=== PATIENT | male | born 1945 | race Caucasian/White ===

== ENCOUNTER 2016-09-23 23:28 | Emergency (ER) | payer OTHER, MEDICARE ==
[~2016-09-23] VITALS: Ht 170.2 cm; Wt 93.9 kg
[2016-09-23 23:45] VITALS: BP 158/87
--- NOTE | 2016-09-24 00:17 | ED NOSE COMPLAINT ---
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 PT'S SON STATES THAT PT HAS EXPERIENCED THIS ONCE BEFORE A FEW YEARS AGO. UPON ARRIVAL, NOSE BLEED APPEARS CONTROLLED. PT TAKES ASPIRIN DAILY. BP 158/87, O2 SAT 95% ON ROOM AIR. Triage Nurses Notes Reviewed? yes HPI: 69 YO MALE WITH CO NOSE BLEED THAT STARTED 45MIN ROLLER HAND. L NARES, MILD TO MODEATE BLEEDING, BLOOD IN THE BACK OF THE THROAT. TAKES ASA 81MG DAILY, HX OF NOSE BLEED SEVERAL YEARS AGO THAT NEEDED PACKING. NO PAIN, NO TRAUMA. BLEEDING STOPPED ON ARRIVAL. NO WEAKNESS, NO FATIGUE. (BLOSSOM AMATO) Past History Travel History Traveled to [place] past 21 day No Medical History Any Pertinent Medical History? see below for history Cardiovascular: hypertension Endocrine: diabetes Surgical History Surgical History: non-contributory Psychosocial History What is your primary language Guinean Tobacco Use: Current Daily Use Daily Tobacco Use Amount/Type: => 5 Cigarettes daily ETOH Use: occasional use Illicit Drug Use: denies illicit drug use Family History Hx Contributory? No (BLOSSOM AMATO) Review of Systems Review of Systems Constitutional: Reports: see HPI. EENTM: Reports: see HPI. Respiratory: Reports: no symptoms. Cardiovascular: Reports: no symptoms. GI: Reports: no symptoms. Genitourinary: Reports: no symptoms. Musculoskeletal: Reports: no symptoms. Skin: Reports: no symptoms. Neurological/Psychological: Reports: no symptoms. Hematologic/Endocrine: Reports: no symptoms. Immunologic/Allergic: Reports: no symptoms. All Other Systems: Reviewed and Negative (BLOSSOM AMATO) Physical Exam Physical Exam General Appearance: well developed/nourished Head: atraumatic, normal appearance Eyes: Bilateral: normal appearance, PERRL, EOMI. Ears: Bilateral: canal normal. Nose: dried blood Mouth/Throat: normal mouth inspection, pharynx normal, SMALL AMOUNT OF BLOOD IN THE POSTERIOR PHARYNX, NO ACTIVE BLEEDING. Neck: normal inspection, supple, full range of motion Cardiovascular/Respiratory: normal breath sounds, regular rate/rhythm Neurologic/Psych: no motor/sensory deficits, awake, alert, oriented x 3, normal gait Skin: intact, normal color, warm/dry Comments: R NARES CLEAR. L NARES WITH SMALL AMOUNT OF DRY BLOOD AND ENGORGED, NOT BLEEDING , BLOOD VESSEL AT THE ANTERIOR PLEXSUS L SIDE. (BLOSSOM AMATO) Progress Differential Diagnoses I considered the following diagnoses in my evaluation of the patient: POSTERIOR BLEED, HTN, THROMBOCYTOPENIA, DIGITAL TRAUMA Plan of Care: BLEEDIND STOPPED AFTER APPLICATION OF AFRIN, DIRECT PRESSURE AND SILVER NITRATE CAUTERY. MONITERED FOR 20+ MIN AND NO SIGNS OF BLEEDIN ON RE EVAL. TO RETURN WITH ANY CONCERNS OF BLEEDINGMORE [id number] IN AFTER DIRECT PRESSURE. Initial ED EKG: none (BLOSSOM AMATO) Departure Departure Disposition: HOME OR SELF CARE Condition: Stable Clinical Impression Primary Impression: Anterior epistaxis Referrals: PHAN LEONARDO,ESTRELLA MARTINEZ (PCP/Family) Additional Instructions: RETURN IF THERE IS BLEEDING FROM THE NOSE THAT HAS NOT STOPPED AFTER 20MIN OF DIRECT PRESSURE. FOLLOW UP WITH ENT IF NOSE BLEEDS CONTINUE. MAKE SURE TO TAKE YOUR BLOOD PRESSURE MEDICATION. Departure Forms: Customer Survey General Discharge Information (BLOSSOM AMATO) PA/STRATEGIC ACCOUNTS MANAGER Co-Sign Statement Statement: ED Attending supervision documentation- [] I saw and evaluated the patient. I have also reviewed all the pertinent lab results and diagnostic results. I agree with the findings and the plan of care as documented in the PA's/STRATEGIC ACCOUNTS MANAGER's documentation. [x] I have reviewed the ED Record and agree with the PA's/STRATEGIC ACCOUNTS MANAGER's documentation. [] Additions or exceptions (if any) to the PAs/STRATEGIC ACCOUNTS MANAGER's note and plan are summarized below: [] (YAKOV LEONARDO,MANDI Gallagher)
[2016-09-24] MEDS ORDERED: RANITIDINE HCL150 MG PO (10:39)
[2016-09-24] MEDS ORDERED: FENOFIBRATE145 M1 PO (10:39)
[2016-09-24] MEDS ORDERED: VERAPAMIL ER240 MG PO (10:39)
[2016-09-24] MEDS ORDERED: BENAZEPRIL HCL40 MG PO (10:40)
[2016-09-24] MEDS ORDERED: HYDRALAZINE HCL50 M1 PO (10:40)
[2016-09-24] MEDS ORDERED: SPIRONOLACTONE50 M1 PO (10:40)
[2016-09-24] MEDS ORDERED: ATORVASTATIN CA10 M1 PO (10:41)
[2016-09-24] MEDS ORDERED: GUAIFENESIN-COD10 ML PO (11:24)
[2016-09-25] MEDS ORDERED: BACTRIM DS TAB1 EACH PO (10:26)
[2016-09-25] MEDS ORDERED: ASPIRIN EC81 M1 PO (20:00)
[2016-09-25] MEDS ORDERED: CITALOPRAM HBR20 MG PO (20:01)
[2016-09-25] MEDS ORDERED: TRADJENTA5 M1 PO (20:01)
[2016-09-25] MEDS ORDERED: VERAPAMIL ER180 MG PO (20:02)
== END 2016-09-24 00:24 ==
LOC: ERH 23:28
DX: R04.0 Epistaxis (principal)
CPT/HCPCS: 99282

== ENCOUNTER 2016-09-24 10:03 | Emergency (ER) | payer OTHER, MEDICARE ==
[~2016-09-24] VITALS: Ht 170.2 cm; Wt 93.4 kg
[2016-09-24 10:07] VITALS: BP 146/82
[2016-09-24] MEDS ORDERED: VERAPAMIL ER240 MG PO (10:39)
[2016-09-24] MEDS ORDERED: RANITIDINE HCL150 MG PO (10:39)
[2016-09-24] MEDS ORDERED: FENOFIBRATE145 M1 PO (10:39)
--- NOTE | 2016-09-24 10:39 | ED NOSE COMPLAINT ---
History of Present Illness General Chief Complaint: Epistaxis/Nasal Foreign Body Stated Complaint: NOSE BLEED Source: patient, family, old records Exam Limitations: no limitations Vital Signs & Intake/Output Vital Signs & Intake/Output Vital Signs Date Time Temp Pulse Resp B/P Pulse O2 O2 Flow FiO2 Ox Delivery Rate 09/24 1007 97.9 96 20 146/82 96 Room Air Allergies Coded Allergies: losartan (Mild, GI DISTRESS 09/24/16) Triage Note: PT TO ED C/O NOSE BLEED SINCE 0500 AND 0800 THIS AM. PT WAS IN ED AROUND MIDNIGHT FOR SAME. SENT HOME. PT STATES IT STARTED BLEEDING AGAIN AT 0500, STOPPED FOR A WHILE AND THEN STARTED AGAIN AT 0800. PT HAS GAUZE IN NOSE, NO BLEEDING NOTED AROUND GAUZE. PT TAKES ASA DAILY. Triage Nurses Notes Reviewed? yes Onset: Abrupt Duration: day(s): (2), intermittent, waxing and waning Timing: recent history Injury Environment: home Severity: mild Severity Numbers: 4 No Modifying Factors: none Associated Symptoms: DENIES HPI: 71-year-old male presents to emergency room with his family after he had 2 episodes of left-sided epistaxis last night after being seen here for the same yesterday requiring cautery. The patient is on a baby aspirin no other blood thinner use. There is been no bleeding since he arrived here in the ER. He denies any trauma injury dizziness lightheadedness fever or chills. The patient states that he used Afrin nasal spray with resolution of the 2 episodes which lasted for the flea only a few minutes. He is otherwise without any other complaints or the patient is also stating that he is at a now productive cough for the past few weeks for which she has not sought care. He denies shortness of breath hemoptysis sputum production fever chills chest pain abdominal pain nausea vomiting or diarrhea. (INGE WOLFE,VINI) Reconcile Medications Atorvastatin Calcium 10 MG TABLET 1 TAB PO DAILY CHOLESTEROL (Reported) Benazepril HCl 40 MG TABLET 1 TAB PO DAILY HEART (Reported) Fenofibrate Nanocrystallized (Fenofibrate) 145 MG TABLET 1 TAB PO DAILY CHOLESTEROL (Reported) Hydralazine HCl 50 MG TABLET 1 TAB PO BID HEART (Reported) Ranitidine (Ranitidine HCl) 150 MG TABLET 1 TAB PO DAILY GI (Reported) Robitussin AC (Guaifenesin-Codeine Syrup) 200 MG-20 MG/10 ML LIQUID 10 ML PO Q6HR PRN COUGH Spironolactone 50 MG TABLET 1 TAB PO DAILY HEART (Reported) Verapamil HCl (Verapamil ER) 240 MG CAP24H.PEL 1 CAP PO DAILY HEART (Reported ) (PRIYA LEONARDO,GENE Polk) Past History Travel History Traveled to [place] past 21 day No Medical History Any Pertinent Medical History? see below for history Cardiovascular: hypertension Endocrine: diabetes Surgical History Surgical History: non-contributory Psychosocial History What is your primary language Frisian Tobacco Use: Current Daily Use Daily Tobacco Use Amount/Type: => 5 Cigarettes daily ETOH Use: denies use Illicit Drug Use: denies illicit drug use Family History Hx Contributory? No (VINI AVENDAÑO) Review of Systems Review of Systems Constitutional: Reports: see HPI. All Other Systems: Reviewed and Negative Comments Review of systems: See HPI, All other systems negative. Constitutional, no chills no fever, no malaise HEENT: No visual changes no sore throat no congestion, Cardiovascular: No chest pain , no palpitation , Skin, no jaundice no rashes, no change in skin Respiratory: No dyspnea no cough no sputum GI: No nausea no vomiting, no diarrhea, : No dysuria Muscle skeletal: No joint pain, no back pain, no neck pain, Neurologic: No numbness no headache Psych: No stress Heme/endocrine: No bruising no polyuria no polydipsia Immunology: No lymphadenopathy (VINI AVENDAÑO) Physical Exam Physical Exam General Appearance: well developed/nourished, alert, awake Nose: normal inspection, no dry blood, no septal hematoma Comments: Well-developed well-nourished patient in no apparent distress. Head/Face: Atraumatic, no maxillary/frontal sinus tenderness, no facial swelling Eyes: PERRL, EOMI, no conjunctival injection. No nystagmus Ear:External auditory canals clear, no erythema Nose: atraumatic.Normal inspection: No bleeding, no septal hematoma no dry blood no active bleeding Throat: Moist mucous membranes.Pharynx normal. No pharyngeal erythema/exudate seen. No stridor/drooling or assymetry. No swelling or edema. No blood to the posterior pharynx Neck: Supple, no lymphadenopathy, FROM Back: FROM, Nontender Cardiovascular: Regular rate and rhythms no murmurs rubs or gallops, Respiratory: Chest nontender.There were no bony deformities, no asymmetry. No respiratory distress. Patient speaking in full complete sentences. Breath sounds clear to auscultation bilaterally: NO W/R/R Extremities: full range of motion Neuro: Alert and oriented x3 Skin: Warm & dry;No appreciable rash on exposed skin Psych: Mood affect normal, normal memory normal judgment. (VINI AVENDAÑO) Progress Differential Diagnoses I considered the following diagnoses in my evaluation of the patient: Epistaxis, pneumonia bronchitis malignancy Plan of Care: Patient was observed in the ER here there is no active bleeding. Patient is requesting to go home he feels stable information was provided for ENT follow-up , prescription for Robitussin with codeine was provided for cough, advised to use caution as this may make you drowsy, Both the family the patient feel comfortable with this plan. I discussed the medications that they will receive with the patient. I gave them signs and symptoms that could indicate an adverse reaction. I have advised them to limit their activities until they can see how they respond to the medication. Initial ED EKG: none (VINI AVENDAÑO) Departure Departure Time of Disposition: 1121 Disposition: HOME OR SELF CARE Condition: Stable Clinical Impression Primary Impression: Epistaxis Referrals: PHAN LEONARDO,ESTRELLA MARTINEZ (PCP/Family) Additional Instructions: FOLLOW UP WITH EAR NOSE AND THROAT DR PHILIP THIS WEEK. DISCUSSED if he starts bleeding apply Afrin to her nose, and hold pressure for 10 minutes if bleeding persists return to the emergency room. Robitussin with codeine for cough use caution as this will make you drowsy this prescription was sent to your [facility] Departure Forms: Customer Survey General Discharge Information Prescriptions: Current Visit Scripts Robitussin AC (Guaifenesin-Codeine Syrup) 10 ML PO Q6HR PRN COUGH #200 ML (VINI AVENDAÑO) PA/ANIMATION ARTIST Co-Sign Statement Statement: ED Attending supervision documentation- [X] I saw and evaluated the patient. I have also reviewed all the pertinent lab results and diagnostic results. I agree with the findings and the plan of care as documented in the PA's/ANIMATION ARTIST's documentation. [] I have reviewed the ED Record and agree with the PA's/ANIMATION ARTIST's documentation. [] Additions or exceptions (if any) to the PAs/ANIMATION ARTIST's note and plan are summarized below: [] (PRIYA LEONARDO,GENE Polk)
[2016-09-24] MEDS ORDERED: BENAZEPRIL HCL40 MG PO (10:40)
[2016-09-24] MEDS ORDERED: HYDRALAZINE HCL50 M1 PO (10:40)
[2016-09-24] MEDS ORDERED: SPIRONOLACTONE50 M1 PO (10:40)
[2016-09-24] MEDS ORDERED: ATORVASTATIN CA10 M1 PO (10:41)
[2016-09-24] MEDS ORDERED: GUAIFENESIN-COD10 ML PO (11:24)
[2016-09-25] MEDS ORDERED: BACTRIM DS TAB1 EACH PO (10:26)
[2016-09-25] MEDS ORDERED: ASPIRIN EC81 M1 PO (20:00)
[2016-09-25] MEDS ORDERED: CITALOPRAM HBR20 MG PO (20:01)
[2016-09-25] MEDS ORDERED: TRADJENTA5 M1 PO (20:01)
[2016-09-25] MEDS ORDERED: VERAPAMIL ER180 MG PO (20:02)
== END 2016-09-24 11:31 ==
LOC: ERH 10:03
DX: R04.0 Epistaxis (principal); R05 Cough

== ENCOUNTER 2016-09-25 09:13 | Emergency (ER) | payer OTHER, MEDICARE ==
[~2016-09-25] VITALS: Ht 170.2 cm; Wt 93.9 kg
[~2016-09-25 09:13] MED LIST: ATORVASTATIN CA10 M1 PO; BENAZEPRIL HCL40 MG PO; FENOFIBRATE145 M1 PO; GUAIFENESIN-COD10 ML PO; HYDRALAZINE HCL50 M1 PO; RANITIDINE HCL150 MG PO; SPIRONOLACTONE50 M1 PO; VERAPAMIL ER240 MG PO
[2016-09-25] MEDS ORDERED: BACTRIM DS TAB1 EACH PO (10:26)
--- NOTE | 2016-09-25 10:26 | ED NOSE COMPLAINT ---
History of Present Illness General Chief Complaint: Epistaxis/Nasal Foreign Body Stated Complaint: NOSE BLEEDING Source: patient, family, old records Exam Limitations: no limitations Vital Signs & Intake/Output Vital Signs & Intake/Output ED Intake and Output 09/26 0000 09/25 1200 Intake Total Output Total Balance Patient 207 lb Weight Allergies Coded Allergies: losartan (Mild, GI DISTRESS 09/24/16) Reconcile Medications Aspirin (Ecotrin*) 81 MG TABLET.DR 1 TAB PO DAILY HEART/BLOOD (Reported) Atorvastatin Calcium 10 MG TABLET 1 TAB PO DAILY CHOLESTEROL (Reported) Benazepril HCl 40 MG TABLET 1 TAB PO DAILY HEART (Reported) Citalopram Hydrobromide (Citalopram HBr) 20 MG TABLET 1 TAB PO DAILY MENTAL HEALTH (Reported) Fenofibrate Nanocrystallized (Fenofibrate) 145 MG TABLET 1 TAB PO DAILY CHOLESTEROL (Reported) Hydralazine HCl 50 MG TABLET 1 TAB PO BID HEART (Reported) Linagliptin (Tradjenta) 5 MG TABLET 1 TAB PO DAILY DM (Reported) Ranitidine (Ranitidine HCl) 150 MG TABLET 1 TAB PO DAILY GI (Reported) Robitussin AC (Guaifenesin-Codeine Syrup) 200 MG-20 MG/10 ML LIQUID 10 ML PO Q6HR PRN COUGH Spironolactone 50 MG TABLET 1 TAB PO DAILY HEART (Reported) Sulfamethoxazole/Trimethoprim (Bactrim Ds Tablet) 800 MG-160 MG TABLET 1 TAB PO BID NASAL TAMPON Verapamil HCl (Verapamil ER) 240 MG CAP24H.PEL 1 CAP PO QPM HEART (Reported) Verapamil HCl (Verapamil ER) 180 MG CAP24H.PEL 1 CAP PO QAM BP (Reported) Triage Note: C/O NOSE BLEED (LEFT NARES SINCE 0400). HER TWICE IN THE PAST 2 DAYS FOR SAME SXS. PT TAKES ASPIRIN 81 MG DAILY. Triage Nurses Notes Reviewed? yes HPI: Patient presents for evaluation of an intermittent severe left nosebleed that began 2-3 days ago. Patient has been seen in the emergency department on a number of occasions for this. He has yet to see an ear nose and throat doctor in follow-up. Patient denies any associated trauma to the nose. He has been putting an Afrin-soaked gauze pad into the nose with each bleeding episode. Episodes typically resolve but then return a few hours later. Past History Travel History Traveled to [place] past 21 day No Medical History Any Pertinent Medical History? see below for history Cardiovascular: hypertension Endocrine: diabetes Surgical History Surgical History: non-contributory Psychosocial History What is your primary language Tajik Tobacco Use: Never used ETOH Use: occasional use Family History Hx Contributory? No Review of Systems Review of Systems Constitutional: Reports: no symptoms. EENTM: Reports: epistaxis. Respiratory: Reports: no symptoms. Cardiovascular: Reports: no symptoms. GI: Reports: no symptoms. Genitourinary: Reports: no symptoms. Musculoskeletal: Reports: no symptoms. Skin: Reports: no symptoms. Neurological/Psychological: Reports: no symptoms. Hematologic/Endocrine: Reports: no symptoms. Immunologic/Allergic: Reports: no symptoms. All Other Systems: Reviewed and Negative Physical Exam Physical Exam Nose: SEE BELOW Comments: Gen.: Well-nourished, well-developed, no acute respiratory distress. Head: Normocephalic, atraumatic. Eyes: Normal inspection bilaterally Ears: Normal inspection bilaterally Nose: Dried blood in the left nostril but no active bleeding. No apparent trauma Throat/mouth : Moist mucosa Neck: Supple, full range of motion, no goiter Lungs: Quiet respirations Back: Normal range of motion Extremities: Normal range of motion grossly Neurologic: Cranial nerves grossly intact, speech is clear Skin: warm and dry Psychiatric: Calm, cooperative, no apparent delusions or hallucinations Progress Differential Diagnoses I considered the following diagnoses in my evaluation of the patient: Nasal trauma, epistaxis, coagulopathy Plan of Care: see d/c instructions Initial ED EKG: none Departure Departure Disposition: HOME OR SELF CARE Condition: Stable Clinical Impression Primary Impression: Left-sided epistaxis Referrals: ESTRELLA BARON (PCP/Family) Additional Instructions: Follow-up with the ear nose and throat doctor listed for reevaluation within 48- 72 hours. Notify your primary care doctor of this emergency department visit and treatment plan. Return if any concerns or sudden worsening. Departure Forms: Customer Survey General Discharge Information Prescriptions: Current Visit Scripts Sulfamethoxazole/Trimethoprim (Bactrim Ds Tablet) 1 TAB PO BID #8 TAB Procedures Epistaxis/Nasal Foreign Body Status: no bleeding Progress: Nasal tampon placed in the left nostril
[2016-09-25 10:48] VITALS: BP 150/80
[2016-09-25] MEDS ORDERED: ASPIRIN EC81 M1 PO (20:00)
[2016-09-25] MEDS ORDERED: TRADJENTA5 M1 PO (20:01)
[2016-09-25] MEDS ORDERED: CITALOPRAM HBR20 MG PO (20:01)
[2016-09-25] MEDS ORDERED: VERAPAMIL ER180 MG PO (20:02)
== END 2016-09-25 10:49 ==
LOC: ERH 09:13
DX: R04.0 Epistaxis (principal)

== ENCOUNTER 2016-09-25 19:32 | Emergency (ER) | payer OTHER, MEDICARE ==
[~2016-09-25 19:32] MED LIST changes: +BACTRIM DS TAB1 EACH PO
[2016-09-25 19:57] LABS: ABSOLUTE BASOPHIL COUNT 0.1 /CUMM (0.0-0.2); ABSOLUTE EOSINOPHIL COUNT 0.1 /CUMM (0.0-0.7); ABSOLUTE GRANULOCYTE CT 5.7 /CUMM (1.4-6.5); ABSOLUTE LYMPH COUNT 2.8 /CUMM (1.2-3.4); BASOPHIL % 0.6 % (0.0-2.0); EOSINOPHIL % 1.2 % (0-5); GRANULOCYTE % 58.6 % (42.2-75.2); MEAN CORPUSCULAR HGB 28.9 PG (27.0-31.0); MEAN CORPUSCULAR HGB CONC 33.3 G/DL (33.0-37.0); MEAN CORPUSCULAR VOLUME 86.8 FL (80.0-94.0); MEAN PLATELET VOLUME 9.4 FL (7.4-10.4); PLATELET COUNT 210 /CUMM (130-400); RBC DISTRIBUTION WIDTH 14.5 % (11.5-14.5); RED BLOOD CELL CT 4.61 /CUMM (4.70-6.10); WHITE BLOOD CELL COUNT 9.7 /CUMM (4.8-10.8)
[2016-09-25] MEDS ORDERED: ASPIRIN EC81 M1 PO (20:00)
[2016-09-25] MEDS ORDERED: TRADJENTA5 M1 PO (20:01)
[2016-09-25] MEDS ORDERED: CITALOPRAM HBR20 MG PO (20:01)
[2016-09-25 20:02] LABS: PT 11.6 SEC (9.4-12.5); PTT 31 SEC (25-37)
[2016-09-25] MEDS ORDERED: VERAPAMIL ER180 MG PO (20:02)
--- NOTE | 2016-09-25 20:52 | ED NOSE COMPLAINT ---
History of Present Illness General Chief Complaint: Epistaxis/Nasal Foreign Body Stated Complaint: EPISTAXIS Source: patient, family, old records Exam Limitations: no limitations Vital Signs & Intake/Output Vital Signs & Intake/Output Vital Signs Date Time Temp Pulse Resp B/P Pulse O2 O2 Flow FiO2 Ox Delivery Rate 09/252 134/72 09/25 1934 97.8 98 24 182/100 95 Room Air Allergies Coded Allergies: losartan (Mild, GI DISTRESS 09/24/16) Reconcile Medications Aspirin (Ecotrin*) 81 MG TABLET.DR 1 TAB PO DAILY HEART/BLOOD (Reported) Atorvastatin Calcium 10 MG TABLET 1 TAB PO DAILY CHOLESTEROL (Reported) Benazepril HCl 40 MG TABLET 1 TAB PO DAILY HEART (Reported) Citalopram Hydrobromide (Citalopram HBr) 20 MG TABLET 1 TAB PO DAILY MENTAL HEALTH (Reported) Fenofibrate Nanocrystallized (Fenofibrate) 145 MG TABLET 1 TAB PO DAILY CHOLESTEROL (Reported) Hydralazine HCl 50 MG TABLET 1 TAB PO BID HEART (Reported) Linagliptin (Tradjenta) 5 MG TABLET 1 TAB PO DAILY DM (Reported) Ranitidine (Ranitidine HCl) 150 MG TABLET 1 TAB PO DAILY GI (Reported) Robitussin AC (Guaifenesin-Codeine Syrup) 200 MG-20 MG/10 ML LIQUID 10 ML PO Q6HR PRN COUGH Spironolactone 50 MG TABLET 1 TAB PO DAILY HEART (Reported) Sulfamethoxazole/Trimethoprim (Bactrim Ds Tablet) 800 MG-160 MG TABLET 1 TAB PO BID NASAL TAMPON Verapamil HCl (Verapamil ER) 240 MG CAP24H.PEL 1 CAP PO QPM HEART (Reported) Verapamil HCl (Verapamil ER) 180 MG CAP24H.PEL 1 CAP PO QAM BP (Reported) Triage Note: PER FAMILY SEEN X 3 FOR NOSEBLEED NOW BOTH NOSTRILS BLEEDING ONLY ON ASPIRIN Triage Nurses Notes Reviewed? yes HPI: Patient returns to the emergency room for his fourth visit for epistaxis. Patient was seen earlier today and had Mirasol backed into his left nostril. Patient is now bleeding around the packing and is now getting blood coming out of the right nostril as well. Patient denies any difficulty breathing. There is no headache. Patient denies any blurry vision. Patient denies any nausea or vomiting. Patient has an appointment With ENT on Saturday. Past History Travel History Traveled to [place] past 21 day No Medical History Any Pertinent Medical History? see below for history Neurological: NONE EENT: NONE Cardiovascular: hypertension Respiratory: NONE Gastrointestinal: NONE Hepatic: NONE Renal: NONE Musculoskeletal: NONE Psychiatric: NONE Endocrine: diabetes Surgical History Surgical History: non-contributory Psychosocial History What is your primary language Arabic Tobacco Use: Current Daily Use Daily Tobacco Use Amount/Type: => 5 Cigarettes daily ETOH Use: occasional use Illicit Drug Use: denies illicit drug use Family History Hx Contributory? No Review of Systems Review of Systems Constitutional: Reports: no symptoms. EENTM: Reports: see HPI, epistaxis. Respiratory: Reports: no symptoms. Cardiovascular: Reports: no symptoms. GI: Reports: no symptoms. Musculoskeletal: Reports: no symptoms. Neurological/Psychological: Reports: no symptoms. Immunologic/Allergic: Reports: no symptoms. Physical Exam Physical Exam General Appearance: well developed/nourished, alert, awake, anxious, mild distress Head: atraumatic, normal appearance Eyes: Bilateral: PERRL, EOMI. Nose: active bleeding Mouth/Throat: normal mouth inspection, pharynx normal Cardiovascular/Respiratory: normal breath sounds, normal peripheral pulses, regular rate/rhythm, no respiratory distress Neurologic/Psych: no motor/sensory deficits, awake, alert, oriented x 3, normal gait, normal mood/affect Progress Differential Diagnoses I considered the following diagnoses in my evaluation of the patient: [Epistaxis ] Plan of Care: Orders Procedure Date/time Status PARTIAL THROMBOPLASTIN TIME 09/25 1937 Complete PROTHROMBIN TIME 09/25 1937 Complete COMPREHENSIVE METABOLIC PANEL 09/25 1937 Complete CBC WITHOUT DIFFERENTIAL 09/25 1937 Complete Laboratory Tests 09/25/161943: Anion Gap 14, Estimated GFR 26 L, BUN/Creatinine Ratio 13.6, Glucose 120 H, Calcium 10.6 H, Total Bilirubin 0.6, AST 21, ALT 20 L, Alkaline Phosphatase 43 , Total Protein 8.5 H, Albumin 4.9, Globulin 3.6, Albumin/Globulin Ratio 1.4, PT 11.6, INR 1.11, APTT 31, CBC w Diff NO MAN DIFF REQ, RBC 4.61 L, MCV 86.8, MCH 28.9, RDW 14.5, MPV 9.4, Gran % 58.6, Lymphocytes % 28.9, Monocytes % 10.7 H, Eosinophils % 1.2, Basophils % 0.6, Absolute Granulocytes 5.7, Absolute Lymphocytes 2.8, Absolute Monocytes 1.0 H, Absolute Eosinophils 0.1, Absolute Basophils 0.1, PUBS MCHC 33.3 Initial ED EKG: none Comments: REPEAT B/P POST BLEEDING CONTROLLED - 134/72 PT AMBULATED IN ER WITHOUT EVIDENCE OF RE-BLEED Departure Departure Disposition: HOME OR SELF CARE Condition: Stable Clinical Impression Primary Impression: Epistaxis Referrals: ESTRELLA BARON (PCP/Family) Additional Instructions: FOLLOW UP WITH YOUR ENT DOCTOR DO NOT BLOW YOUR NOSE RETURN IF BLEEDING RESUMES OR FOR ANY CONCERNS Departure Forms: Customer Survey General Discharge Information
[2016-09-25 21:12] VITALS: BP 134/72
== END 2016-09-25 21:21 ==
LOC: ERH 19:32
PROVIDERS: Emergency Medicine
DX: R04.0 Epistaxis (principal)